=== PATIENT | female | born 1950 | race Caucasian/White ===

== ENCOUNTER → 2017-12-22 | Outpatient (CLI) | payer MEDICARE, OTHER | END | disposition home or self-care (01) | LOC: PCVCCLINIC 15:53 | DX: I10 Essential (primary) hypertension (principal); R07.89 Other chest pain; R94.39 Abnormal result of other cardiovascular function study; E78.00 Pure hypercholesterolemia, unspecified; Z79.82 Long term (current) use of aspirin; Z87.891 Personal history of nicotine dependence; Z88.8 Allergy status to other drugs, medicaments and biological substances | CPT/HCPCS: 93005; G0463 ==

== ENCOUNTER → 2017-12-24 | Outpatient (CLI) | payer MEDICARE, OTHER ==
[~2017-12-24] MED LIST: DIAZEPAM 10 MG TABLET.; IOHEXOL 350 MG/ML 100 ML VIAL.; IOHEXOL 350 MG/ML 50 ML VIAL.; IV NORMAL SALINE 500ML BAG 500 ML; LIDOCAINE 1%/EPI 1:100,000 20 ML VIAL.; MIDAZOLAM HCL/PF 2 MG/2 ML VIAL.; fentaNYL PF VIAL 100 MCG/2 ML VIAL
== END | disposition home or self-care (01) ==
LOC: PCVCINTER 14:10
DX: I70.1 Atherosclerosis of renal artery (principal); I25.10 Atherosclerotic heart disease of native coronary artery without angina pectoris; I70.0 Atherosclerosis of aorta; I10 Essential (primary) hypertension; E11.9 Type 2 diabetes mellitus without complications; Z87.891 Personal history of nicotine dependence; Z79.84 Long term (current) use of oral hypoglycemic drugs
CPT/HCPCS: 36252; 75630; 76937; 93458; 99152; 99153; C1751; C1760; C1769; C1894; J1644; J2250; J3010; J3490; J7040; Q9967